=== PATIENT | female | born 1945 | race Caucasian/White ===

== ENCOUNTER 2022-07-28 14:32 | Emergency (ER) | payer OTHER, MEDICARE ==
[2022-07-28 14:51] VITALS: BP 152/76; PULSE 87; RESP 20; TEMP 98.5; BMI 21.9
== END 2022-07-28 16:18 | disposition home or self-care (01) ==
LOC: FER 14:32
DX: S40.022A Contusion of left upper arm, initial encounter (principal); W22.8XXA Striking against or struck by other objects, initial encounter; Y93.G3 Activity, cooking and baking; Y92.000 Kitchen of unspecified non-institutional (private) residence as the place of occurrence of the external cause
CPT/HCPCS: 73090-TC-LT-FY; 99283-25